=== PATIENT | male | born 1980 | race Caucasian/White ===

== ENCOUNTER → 2020-01-04 | Outpatient (CLI) | payer OTHER, SELFPAY | LOC: M LAB 15:25 | PROVIDERS: ATTEND Neuromusculoskeletal Medicine & OMM | DX: Z31.41 Encounter for fertility testing (principal) ==

== ENCOUNTER → 2021-05-27 | Outpatient (REF) | payer OTHER | LOC: M SMT 17:40 | PROVIDERS: ATTEND Urology | DX: Z30.2 Encounter for sterilization (principal) ==